=== PATIENT | female | born 1980 | race Two or more races ===

== ENCOUNTER 2024-03-30 15:26 | Outpatient (REF) | payer SELFPAY ==
[2024-04-02 05:28] LABS: TS Negative Control Passed; TS Panel A 0; TS Panel B 0; TS Positive Control Passed; TSpotTB Negative (Negative)
== END 2024-03-30 15:27 | disposition home or self-care (01) ==
LOC: HO.HHCL 15:26
PROVIDERS: Visit Provider Nurse Practitioner Family
DX: Z11.1 Encounter for screening for respiratory tuberculosis (principal); R05.1 Acute cough
CPT/HCPCS: 36415; 86481